=== PATIENT | male | born 1985 | race Caucasian/White ===

== ENCOUNTER 2018-06-11 14:25 | Emergency (ER) | payer SELFPAY ==
[2016-06-03 14:30] VITALS: Wt 75.8 kg
[~2018-06-11 14:25] MED LIST: ACID REDUCER PO; AMOX-559 PO; AUG875 PO; CIPR-344 PO; CLIN300C99 PO; HYDR-3087 PO; IBUP-136 PO; IBUP-1618 PO; IBUP800T37 PO; KET10 PO; LOR5/325 PO; NAPR500T75 PO; OXCA300T44 PO; OXYC-865 PO; OXYC-869 PO
[2018-06-11 14:33] VITALS: BP 132/83
[2018-06-11] MEDS ORDERED: TOPI-120 PO (14:35)
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
== END 2018-06-11 15:47 | disposition home or self-care (01) ==
LOC: ER 14:33
DX: Z77.098 Contact with and (suspected) exposure to other hazardous, chiefly nonmedicinal, chemicals (principal); R53.83 Other fatigue; R26.2 Difficulty in walking, not elsewhere classified; F12.90 Cannabis use, unspecified, uncomplicated
CPT/HCPCS: 36415; 80305; 80357; 80375; 81001; 99283

== ENCOUNTER 2019-03-05 06:09 | Emergency (ER) | payer OTHER ==
[2016-06-03 14:30] VITALS: Wt 72.6 kg
[~2019-03-05 06:09] MED LIST changes: +TOPI-120 PO
--- NOTE | 2019-03-05 06:18 | ER Report ---
History and Physical Time Seen By MD: 06:18 Hx. of Stated Complaint: PATIENT C/ SEVERE HEADACHE AND STATES HE FEELS A SEIZURE STARTING (TAVIA CHAPMAN DO) HPI/ROS CHIEF COMPLAINT: headache HISTORY OF PRESENT ILLNESS: PT states that for the last few days he has been having headaches. Headache became severe last night and has not gone away. Light and noise make it worse. Intermittent visual changes in left eye. H eadache is in back of head. Pt states this is similar to prior headaches when they are severe. + nausea. PT has hx of brain bleed in the past which causes him to now have seizures. Last seizure was in Nov 2017. PT is on topamax bid for seizure and headaches. Pt took his topomax this am. REVIEW OF SYSTEMS: Constitutional: No fever, no chills. Eyes: No discharge, + photophobia, + blurred vision L ENT: No sore throat. Cardiovascular: No chest pain, no palpitations. Respiratory: No cough, no shortness of breath. Gastrointestinal: No abdominal pain, no vomiting, + nausea Genitourinary: No hematuria. Musculoskeletal: No back pain. Skin: No rashes. Neurological: + headache. (TAVIA CHAPMAN DO) Allergies: Coded Allergies: hydrocodone (Verified Adverse Reaction, Severe, CONSTIPATION/VOMITING, 03/05/19) Home Meds Active Scripts Metoclopramide Hcl (REGLAN) 10 Mg Tablet, 10 MG PO Q6H PRN for HEADACHE, #12 TAB 0 Refills Prov:TERI LR MD 03/05/19 Ketorolac Tromethamine (KETOROLAC TROMETHAMINE) 10 Mg Tab, 10 MG PO Q6H PRN for PAIN, #12 TAB 0 Refills Prov:TERI LR MD 03/05/19 Reported Medications Topiramate (TOPAMAX) 50 Mg Tablet, 50 MG PO BID 06/11/18 Past Medical/Surgical History Pmhx; seizures, migraines, pneumonia, constipation, reflux, ankle sprains, arthritis, fractures, alcohol abuse, bipolar, ? brain bleed Patient denies any surgical history. (TAVIA CHAPMNA DO) Hx Smoking: Yes Smoking Status: Current: Every Day Smoker (currently trying to quit) Exposure to Second Hand Smoke?: Yes Hx Substance Use Disorder: No Hx Alcohol Use: Yes (TAVIA CHAPMAN DO) Constitutional Vital Sign - Last 24 Hours 03/05/19 03/05/19 03/05/19 03/05/19 06:13 06:15 06:30 07:00 Temp 97.6 Pulse 70 68 53 Resp 17 15 B/P (MAP) 137/105 136/102 (113) 124/81 (95) Pulse Ox 95 97 96 96 O2 Delivery Room Air 03/05/19 03/05/19 03/05/19 03/05/19 07:05 07:10 07:15 07:20 Pulse 52 53 53 52 Resp 14 14 17 17 B/P (MAP) 118/79 (92) Pulse Ox 96 95 95 96 03/05/19 03/05/19 03/05/19 03/05/19 07:25 07:30 07:35 07:40 Pulse 64 52 56 Resp 11 17 13 B/P (MAP) 125/89 (101) Pulse Ox 97 97 97 03/05/19 03/05/19 03/05/19 07:45 07:50 07:55 Pulse 55 54 Resp 9 18 14 B/P (MAP) 116/84 (95) Pulse Ox 98 97 97 [facility] Physical Exam General Appearance: The patient is alert, has no immediate need for airway protection and no signs of toxicity. Eyes: Pupils equal and round no pallor or injection, EOMI, nl fundoscopic exam ENT: no pharyngeal erythema or exudates, Mucous membranes are moist, TM are nl b/l Respiratory: There are no retractions, lungs are clear to auscultation. Cardiovascular: Regular rate and rhythm. pulses are equal and symmetrical Gastrointestinal: Abdomen is soft and non tender, no masses, bowel sounds normal, no guarding, no rigidity or rebound Neurological: Cranial nerves II-XII grossly intact, no sensory or motor loss Skin: Warm and dry, no rashes. Musculoskeletal: Neck is supple non tender, no vertebral tenderness Extremities are nontender, non swollen and have full range of motion. DIFFERENTIAL DIAGNOSIS: After history and physical exam differential diagnosis was considered for Migraine, intracranial bleed (LAURORA,TAVIA V DO) Medical Decision Making EKG/Imaging Imaging EXAMINATION: CT head without IV contrast HISTORY: Headache. COMPARISON: CT head from 03/24/2017 and brain MRI from 07/03/2017. TECHNIQUE: Contiguous axial images were obtained from the skull base to the vertex without intravenous contrast. Sagittal and coronal reformatted images are also submitted. One of the following dose optimization techniques was utilized in the performance of this exam: Automated exposure control; adjustment of the mA and/or kV according to the patient's size; or use of an iterative reconstruction technique. Specific details can be referenced in the facility's radiology CT exam operational policy. FINDINGS: Brain volume: Normal. Ventricles: Normal. Acute ischemic changes: None. Hemorrhage: No acute intracranial hemorrhage. Masses/edema: None. Ryan-white: Negative. White matter: Normal. Vessels: Negative. Extra-axial: Negative. Calvarium/scalp: Negative. Skull base/visualized face: Negative. Visualized sinuses/orbits: Negative. Mild right cerebellar tonsillar ectopia of 3 mm is unchanged. IMPRESSION: 1. No acute hemorrhage or intracranial mass lesion. No CT evidence of acute infarct. 2. Mild right cerebellar tonsillar ectopia of 3 mm is unchanged. Report Dictated By: Julianna Jernigan MD at 03/05/2019 6:56 AM (TERI LR MD) ED Course/Re-evaluation ED Course Reviewed prior visit for Headache. Pt was given reglan, benadryl, decadron and toradol with relief of headache. Will give fluids, reglan, benadryl and decadron now. Will hold toradol until we have results of CT of head. (TAVIA CHAPMAN DO) ED Course I reviewed this case with Dr. Chapman at shift change and assumed care of the patient. He has a headache and history of seizures with headache. CT scan of the brain without contrast just done. Normal CT scan. Patient given Toradol. Feels much better. Gave take home medications that he can try at home if this happens again. Decision to Disposition Date: March 05, 2019 Decision to Disposition Time: 07:28 (TERI LR MD) Depart Departure Latest Vital Signs Vital Signs Date Time Temp Pulse Resp B/P (MAP) Pulse Ox O2 Delivery O2 Flow Rate FiO2 03/05/19 07:55 14 97 03/05/19 07:50 54 03/05/19 07:45 116/84 (95) 03/05/19 06:13 97.6 Room Air (TERI LR MD) Impression: Primary Impression: Migraine headache Condition: Improved Disposition: HOME OR SELF-CARE New Scripts Metoclopramide Hcl (REGLAN) 10 Mg Tablet 10 MG PO Q6H PRN for HEADACHE, #12 TAB 0 Refills Prov: TERI LR MD 03/05/19 Ketorolac Tromethamine (KETOROLAC TROMETHAMINE) 10 Mg Tab 10 MG PO Q6H PRN for PAIN, #12 TAB 0 Refills Prov: TERI LR MD 03/05/19 Patient Instructions: Migraine Headache (ED) Additional Instructions: For future headaches, you can use some medicines at home to try to help relieve the headaches. Over the counter Benadryl 25mg tablets, take 2 tablets. Can use 1-2 tablets every 6 hours as needed. Reglan 10mg, can use 1 every 6 hours as needed for nausea or headache. Toradol 10mg, can use 1 every 6 hours as needed for nausea or headache. Problem Qualifiers Primary Impression: Migraine headache Migraine type: unspecified Status migrainosus presence: without status migrainosus Intractability: not intractable Qualified Codes: G43.909 - Migraine, unspecified, not intractable, without status migrainosus TAVIA CHAPMAN DO March 05, 2019 06:18 TERI LR MD March 05, 2019 07:02
[2019-03-05] MEDS ORDERED: METOCLOPRAMIDE 10 MG/2 ML SDV IVP ONE (06:25)
[2019-03-05] MEDS ORDERED: NS(*) 0.9% 1000 ML BAG 1,000 ML IV ONE (06:25)
[2019-03-05] MEDS ORDERED: diphenhydrAMINE 50 MG/ML VIAL IVP ONE (06:25)
[2019-03-05] MEDS ORDERED: DEXAMETHASONE SOD PHOS 10MG/ML IVP ONE (06:30)
--- NOTE | 2019-03-05 07:05 | RADIOLOGY IMAGING REPORT ---
FACILITY: [facility] - [place] PATIENT NAME: Aleksandar Pena : 1985 MR: [id number] V: [id number] EXAM DATE: ORDERING PHYSICIAN: TAVIA CHAPMAN TECHNOLOGIST: Location: [facility] [place] Patient: Aleksandar Pena : 1985 Visit/Account:[id number] Date of Sevice: 03/05/2019 EXAMINATION: CT head without IV contrast HISTORY: Headache. COMPARISON: CT head from 03/24/2017 and brain MRI from 07/03/2017. TECHNIQUE: Contiguous axial images were obtained from the skull base to the vertex without intraven ous contrast. Sagittal and coronal reformatted images are also submitted. One of the following dose optimization techniques was utilized in the performance of this exam: Autom ated exposure control; adjustment of the mA and/or kV according to the patient's size; or use of an i terative reconstruction technique. Specific details can be referenced in the facility's radiology C T exam operational policy. FINDINGS: Brain volume: Normal. Ventricles: Normal. Acute ischemic changes: None. Hemorrhage: No acute intracranial hemorrhage. Masses/edema: None. Ryan-white: Negative. White matter: Normal. Vessels: Negative. Extra-axial: Negative. Calvarium/scalp: Negative. Skull base/visualized face: Negative. Visualized sinuses/orbits: Negative. Mild right cerebellar tonsillar ectopia of 3 mm is unchanged. IMPRESSION: 1. No acute hemorrhage or intracranial mass lesion. No CT evidence of acute infarct. 2. Mild right cerebellar tonsillar ectopia of 3 mm is unchanged. Report Dictated By: Julianna Jernigan MD at 03/05/2019 6:56 AM Report E-Signed By: Julianna Jernigan MD at 03/05/2019 7:00 AM WSN:[id number]
[2019-03-05] MEDS ORDERED: KETOROLAC 30 MG/ML VIAL IVP ONE (07:25)
[2019-03-05] MEDS ORDERED: METO-734 PO (07:30)
[2019-03-05] MEDS ORDERED: KET10 PO (07:30)
[2019-03-05 07:45] VITALS: BP 116/84
== END 2019-03-05 07:55 | disposition home or self-care (01) ==
LOC: ER 07:02
DX: G43.909 Migraine, unspecified, not intractable, without status migrainosus (principal)
CPT/HCPCS: 70450; 96361; 96374; 96375; 99284; J1100; J1200; J1885; J2765; J7030